=== PATIENT | male | born 1940 | race Caucasian/White ===

== ENCOUNTER 2022-09-03 09:11 | Day surgery (SDC) | payer OTHER, SELFPAY ==
[2022-08-26 08:48] VITALS: BMI 25.9
[2022-09-03] VITALS (12 sets, daily range): BP systolic 102–152; BP diastolic 63–89; PULSE 70–87; RESP 12–22; TEMP 36.3–37.2; O2SAT 93–99; BMI 25.9
--- NOTE | 2022-09-03 08:00 | DI.RAD.S_ITS ---
PROCEDURE: XR HIP W PEL IF DONE RT 2V INDICATIONS: right RAJI, anterior TECHNIQUE: Multiple intraoperative fluoroscopic views of the right hip were acquired. COMPARISON: None. FINDINGS: Bones: Intraoperative fluoroscopic views demonstrate placement of a total right hip arthroplasty IMPRESSION: Intraoperative fluoroscopic views of right hip arthroplasty. Dictated by: Cecilia Katz M.D. on 09/03/2022 at 17:09 Approved by: Cecilia Katz M.D. on 09/03/2022 at 17:10
[2022-09-03] MEDS: CELECOXIB 200 MG CAPSULE PO (10:05)
[2022-09-03] MEDS: ACETAMINOPHEN 325 MG TABLET 975 MG PO (10:05)
[2022-09-03] MEDS: VANCOMYCIN 1,000 MG/200 ML PIGGYBACK 200 MG IV (10:05)
--- NOTE | 2022-09-03 10:43 | PM.PREOP ---
Pre-operative Note COVID-19 COVID-19 status: Negative Interval Note History & Physical reviewed/Exam performed by Physician: Yes Changes to H&P: No
--- NOTE | 2022-09-03 10:45 | P.OP_ITS ---
Operative Date/Time/Diagnoses Date of procedure: 09/03/22 Time of procedure: 11:00 Pre-op diagnosis: right hip OA Post-op diagnosis: same Procedure & Clinicians Procedure: right total hip anterior approach Same procedure as scheduled: Yes Indications: The patient has had progressively worsening right hip pain with radiographic changes consistent with arthritis. Non-operative management has failed and the patient has requested total hip replacement. The risks, benefits and alternatives to surgery were discussed with the patient prior to proceeding. Risks discussed included, but were not limited to, failure to relieve pain, leg length discrepancy, dislocation, stiffness, infection, nerve damage, deep venous thrombosis, pulmonary embolism, stroke, coma, heart attack, permanent paralysis and , as well as the potential need for eventual revision of the prosthetic. Surgeon: Lawanda Trujillo Short Filler Bunch Machine Operator: Jude Aaron Click Yes if Unassisted: Yes Anesthesia Type: General and Spinal Operative Notes Findings: Severe right hip osteoarthritis, good stability, adequate bone Closure Type: primary Specimen(s): none sent Prosthetic devices, grafts, tissues, transplants, or devices: Trujillo and nephew R3 size 54, anthology a standard offset size 6, neutral poly liner, one 6.5mm screw, 36 by -3 oxinium head Applied: implant(s) Estimated Blood Loss (mL): 250 Blood products transfused: none Procedure in detail: The patient was brought to the operating room. Patient was carefully positioned in the supine position. Time-out was performed and antibiotics were given. Anesthesia was induced. He was positioned in the on the table in order to allow hyperextension of the hip. The right lower extremity was prepped and draped in a standard sterile fashion. An anterior right hip incision was made 1 fingerbreadth lateral to the anterior superior iliac spine and extended distally towards the greater trochanter. Dissection was carried out through skin and subcutaneous tissues. The skin and subcutaneous tissues were carefully injected with Lidocaine with epi. Superficial hemostasis was achieved. The fascia over the tensor fascia saran was defined and incised with a knife. Two Allis clamps were used to grasp the fascia. Tensor fascia saran was retracted laterally. A gelpi retractor was placed. Dissection was carried out down along the neck. The circumflex vessels were carefully identified and cauterized with the Aqua Mantis. There was good visualization of the femoral neck. A Cobra was placed superior to the neck and the gluteus fibers were carefully stripped from that superior aspect of the capsule. A 2nd retractor was placed along the inferior aspect of the neck. The rectus insertion along the capsule was partially released. A 3rd retractor that was then gently placed over the rim of the acetabulum under the rectus. Capsule was carefully incised and released from the intertrochanteric line circumferentially superior to the mid sagittal line and inferiorly to the mid sagittal line until the lesser trochanter was palpable. A tag stitch was placed both in the superior and inferior limb of the capsular insertion. Along the acetabulum capsule was also released up to the mid sagittal 12:00 position. A portion of the labrum was resected. A saw was used to perform an osteotomy at the level of the intertrochanteric line and the junction of the superior femoral neck leaving approximately 1 finger breath of residual inferior neck above the lesser trochanter. A 2nd cut was made along the femoral neck at the base of the head and a napkin ring of neck was removed. Corkscrew was placed in the femoral head and the head was removed without difficulty. Retractors were then repositioned around the acetabulum. Residual labrum was resected and additional osteophytes were removed. A reamer that was 4 mm below the templated size was placed by hand in the acetabulum and it was reamed to centralize the acetabulum. It was then reamed up to 2 under the templated size and fluoroscopy was brought in to confirm the position of the reaming and depth of reaming. I reamed 1 under the anticipated size. A trial cup was placed and noted that it was appropriately sized and fluoroscopy confirmed position and depth. The component was open and inserted without difficulty fluoroscopic imaging was used to confirm that the cup had been adequately seated and was well positioned. It was further stabilized with a single screw. Neutral poly liner was placed. The cup was tested and noted to be stable. Attention was then directed to the femur. The femur was gently hyperextended additional capsular release was performed as needed in order to allow adequate visualization of the proximal femur with elevation of the femur. Patient was placed in a hyperextended slightly adducted position with maximum external rotation. The patient had extremely dense bone. I worked meticulously to clear out the lateral aspect of the trochanter in order to avoid varus. Box osteotome was used to check for any residual neck as well as sclerotic bone along the trochanter. [place] pepper was placed in the femur. Additional broaching was performed. Canal finder was used to determine the alignment of the canal and position. Size 1 broach was placed. I did check the overall position of the broach with a size 1 broach in. The canal was then appropriately broached up to the templated size as long as there was adequate stability of the broach and serial advancement of the broach without excessive impingement. Specific attention was directed at avoiding varus attempting to direct the distal aspect of the broach more anteriorly and avoiding excessive anteversion. Trial reduction showed acceptable range of motion, good stability, no posterior impingement, alevism of leg length and appropriate lateral shuck. It was clearly too tight to place a extended offset neck and looked appropriate with a standard offset neck. I also hyperflexed the hip and checked that there was no impingement anteriorly and there was good stability with flexion, adduction and internal rotation. Marcaine and Exparel were injected. The stem was placed without difficulty. Repeat trial reduction and x-ray showed acceptable overall position, length, and no evidence of the femoral fracture. Final head was placed. Wound was meticulously irrigated with normal saline. The hip was reduced and additional Exparel and Marcaine were injected. The capsule was closed with interrupted nonabsorbable sutures. The fascia of the tensor was closed with interrupted and running Vicryl. No drain was placed. Any tensor fascia saran muscle that appeared to be contused or injured which was a minimal amount was carefully resected. Capsule around the tensor was injected with Exparel and Marcaine. The skin was closed with barbed stitches for the subcutaneous tissue and skin. We also used surgical glue. The wound was dressed sterilely. Brief Betadine soak was also used and was meticulously irrigated with normal saline. Patient was transferred to recovery room in satisfactory condition. Complications: none Post-operative Condition: stable Disposition: Acute Care Plan for aftercare: The patient will be maintained on a standard total hip replacement protocol with weight bearing as tolerated and anterior hip precautions. The patient will receive Aspirin and sequential compression devices for DVT prophylaxis. The patient will be discharged home when safe for the home environment.
--- NOTE | 2022-09-03 10:45 | PM.PREOP ---
Pre-operative Note COVID-19 COVID-19 status: Negative Interval Note History & Physical reviewed/Exam performed by Physician: Yes Changes to H&P: No
[2022-09-03] MEDS: CEFAZOLIN 2 GM/100 ML PREMIX 100 ML IV ×2 (11:15→18:52)
[2022-09-03] MEDS: TRANEXAMIC ACID 1,000 MG VIAL 2000 MG INJ ×2 (11:30→13:55)
[2022-09-03] MEDS: ACETAMINOPHEN IV 1,000 MG/100 ML VIAL 400 MG IV (11:52)
[2022-09-03] MEDS: BUPIVACAINE 0.25% (PF) 60 ML, EPINEPHrine 0.3 MG INJ (11:54)
[2022-09-03] MEDS: BUPIVACAINE LIPOSOME 266 MG/20 ML VIAL INJ (11:55)
--- NOTE | 2022-09-03 11:59 | SUR.OPER ---
Supine on padded [place] table with bilateral legs secured in padded positioning boots and suspended in positioning spars, operative leg in traction per surgeon. Head on one pillow. Arm on non-operative side secured on padded armboard <90 degrees abduction. Arm on operative side padded and resting across chest then secured with tape over sheet. Padded perineal post in place per surgeon.
--- NOTE | 2022-09-03 14:17 | DI.RAD.S_ITS ---
PROCEDURE: XR HIP W PEL IF DONE LT 2V INDICATIONS: RIGHT TOTAL ANTERIOR HIP TECHNIQUE: Right views of the hip were acquired. COMPARISON: [facility], CR, XR HIP W PEL IF DONE RT 2V, 09/03/2022, 12:33. FINDINGS: Bones: Total right hip prosthesis in good position. Ana procedural soft tissue air noted. No evidence of fracture. Prior left hip total arthroplasty in good position. Soft tissues: No suspicious soft tissue calcifications or masses. IMPRESSION: Recent right total hip arthroplasty in good position without complication. No fracture. Prior left total hip arthroplasty also in good position Approved by: Alexey Perdomo M.D. on 09/03/2022 at 17:31
[2022-09-03] MEDS: OXYCODONE IR 5 MG TABLET PO (15:02)
[2022-09-03] MEDS: LACTATED RINGERS 1,000 ML 84 ML IV (15:13)
--- NOTE | 2022-09-03 15:43 | SUR.PHASEI ---
Pt transferred too room 221 in bed by this RN. SBAR report to Ignacia (JAMES) Rn. Pt transferred with 1 belongings bag. Bed in low position. Call light in reach.
[2022-09-03] MEDS: LACTATED RINGERS 1,000 ML 125 ML IV (16:00)
[2022-09-03] MEDS: ACETAMINOPHEN 325 MG TABLET 650 MG PO (18:52)
[2022-09-03] MEDS: DOCUSATE 100 MG CAPSULE PO (20:31)
[2022-09-03] MEDS: ASPIRIN EC 81 MG TABLET PO (20:31)
[2022-09-04] VITALS: BP 125/60; PULSE 75; RESP 17; TEMP 36.6; O2SAT 96
[2022-09-04] MEDS: ACETAMINOPHEN 325 MG TABLET 650 MG PO ×3 (00:01→11:45)
[2022-09-04] MEDS: LACTATED RINGERS 1,000 ML 125 ML IV (00:04)
[2022-09-04] MEDS: SODIUM CHLORIDE 0.9% FLUSH 10 ML IV (02:54)
[2022-09-04] MEDS: CEFAZOLIN 2 GM/100 ML PREMIX 100 ML IV (02:55)
[2022-09-04 04:00] VITALS: BP 139/69; PULSE 77; RESP 17; TEMP 36.3; O2SAT 98
[2022-09-04 04:52] LABS: Hematocrit 34.7 % (41-53); Hemoglobin 11.7 g/dL (13.5-17.5)
--- NOTE | 2022-09-04 07:13 | P.DS_ITS ---
History of Present Illness History of Present Illness Date Patient Seen: 09/04/22 Time Patient Seen: 07:14 Chief complaint: Right total HIP Arthro/Anterior Approach *OPB* Narrative: Operative Date/Time/Diagnoses Date of procedure: 09/03/22 Time of procedure: 11:00 Pre-op diagnosis: right hip OA Post-op diagnosis: same Procedure & Clinicians Procedure: right total hip anterior approach Same procedure as scheduled: Yes Indications: The patient has had progressively worsening right hip pain with radiographic changes consistent with arthritis. Non-operative management has failed and the patient has requested total hip replacement. The risks, benefits and alternatives to surgery were discussed with the patient prior to proceeding. Risks discussed included, but were not limited to, failure to relieve pain, leg length discrepancy, dislocation, stiffness, infection, nerve damage, deep venous thrombosis, pulmonary embolism, stroke, coma, heart attack, permanent paralysis and , as well as the potential need for eventual revision of the prosthetic. Surgeon: Lawanda Trujillo Informatics Application Analyst: Jude Aaron Click Yes if Unassisted: Yes Anesthesia Type: General and Spinal Operative Notes Findings: Severe right hip osteoarthritis, good stability, adequate bone Closure Type: primary Specimen(s): none sent Prosthetic devices, grafts, tissues, transplants, or devices: Trujillo and nephew R3 size 54, anthology a standard offset size 6, neutral poly liner, one 6.5mm screw, 36 by -3 oxinium head Applied: implant(s) Estimated Blood Loss (mL): 250 Blood products transfused: none Discharge Providers Provider Discharge Date: 09/04/22 Primary care physician: Doctor Pura MD Consults: 09/02/22 08:00 Consult to Anesthesiology Routine Comment: Consulting Provider: Anesthesiologist Reason for consultation: Regional block for post operative pain control 09/03/22 16:02 Consult to Discharge Planning Routine Comment: Consult to Physical Therapy Evaluate & Treat Comment: Physician Instructions: post op RAJI protocol Consult to Respiratory Therapy Evaluate & Treat Comment: Physician Instructions: Evaluate and treat Discharge provider: Rosa Loyola PA-C Summary Hospital Course Discharge Diagnosis: Right hip OA, s/p R RAJI Hospital Course: Mr Menjivar's hospital course was unremarkable. On POD# 1 he was feeling well and wanted to go home. He was eating and voiding without difficulty. His pain was well-controlled with oral medication. He was evaluated by PT prior to discharge. Exam Vital Signs (past 8 hours): - 09/04/22 00:00 09/04/22 04:00 Temperature 97.8 F 97.3 F L Pulse Rate 75 77 Respiratory Rate 17 17 Blood Pressure 125/60 139/69 Pulse Oximetry 96 98 Oxygen Delivery Method Room Air Oxygen Flow Rate 0 Narrative Exam Narrative: 5/5 strength in hip flexors, quadriceps, hamstrings, DF, PF, EHL on right; foot drop on left. Sensation to light touch intact in BLE. Calves soft, compressible, nontender and without palpable cords or masses. Aquacel dressing CDI. Objective Labs Result Diagrams: 09/04/22 04:20 Labs: Laboratory Results - last 24 hr 09/04/22 04:20 Hgb 11.7 L Hct 34.7 L PFSH Medical History (Updated 08/26/22 @ 09:09 by Carol Menjivar RN) Fungal infection (2021) Left foot drop Osteoarthritis Surgical History (Updated 09/04/22 @ 07:20 by Rosa Loyola PA-C) History of back surgery History of total left hip replacement (~2018) History of total left knee replacement (TKR) (2003) Hx of bilateral cataract extraction Hx of hernia repair Social History household members: spouse Smoking Status: Former smoker alcohol intake: current Discharge Assessment & Plan Assessment and Plan Assessment: s/p Right total hip arthroplasty, anterior approach Plan of Treatment: D/c home, multimodal pain control, ASA 81 mg BID x 6 weeks for VTE prophylaxis, outpt PT Discharge Plan Discharge Plan Patient Disposition: Home Discharge orders & Medications Discharge Orders: Discharge (Order); Ordered 09/04/22 Ordered By: Rosa Loyola Prescriptions: New oxycodone 5 mg Tablet 5 mg PO Q4H PRN (Reason: Pain, Moderate (4-6)) Qty: 60 0RF acetaminophen 325 mg Tablet 650 mg PO Q6HR MDD 3000 mg Qty: 240 0RF aspirin 81 mg Tablet,Delayed Release (Dr/Ec) 81 mg PO BID Qty: 90 0RF docusate sodium 100 mg Capsule 100 mg PO BID PRN (Reason: constipation) Qty: 60 2RF Continued ibuprofen 200 mg Tablet 200 mg PO Q6H PRN (Reason: Pain) Label Comments: has not taken for a couple of months Follow up/Referrals: Miscellaneous,DoctorMD [Primary Care Provider] - Lawanda Trujillo MD [Physician] - As previously scheduled (Follow up with Sapphire Phillip PA-C, on 09/15/2022 @ 2:00 pm at [facility] office in [place]) Diet/Activity/Treatments Diet: Diet as Tolerated Activity: Walk frequently! Cold/Heat Therapy: Ice to hip as needed for pain. Skin/Wound/Dressing Care Report to your healthcare provider any signs of infection, such as:: chills, fever, night sweats, unusual drainage and unusual redness Dressing: May shower. Leave Aquacel dressing in place until follow up appointment. No bathing or otherwise soaking incision. Visit Report/Discharge Packet Instructions: DI for Hip Replacement Stand Alone Forms: Surgery Discharge Discharge Data Primary Care Provider: Miscellaneous,Doctor Attending Provider: Lawanda Trujillo
[2022-09-04 08:49] VITALS: BP 104/47; PULSE 86; RESP 18; TEMP 36.8; O2SAT 95
[2022-09-04] MEDS: DOCUSATE 100 MG CAPSULE PO (08:53)
[2022-09-04] MEDS: ASPIRIN EC 81 MG TABLET PO (08:53)
--- NOTE | 2022-09-04 09:26 | CM.DANOTE ---
DDP: Case received, EMR reviewed and met with patient. Spouse, Vilma, was also at bedside. Was able to obtain information regarding patient's baseline activity status prior to his surgery. DCP assessment completed with information currently available. Patient is an 82 year old male who admitted yesterday morning to the care of the orthopedic team. PCP: Dr. Beaulieu at [facility]. Payer: confirmed: [facility]. Patient came to the hospital via private vehicle for a surgical procedure. Patient had right total hip anterior surgery. Patient has history of osteoarthritis. Met with patient and spouse, Vilma, in the room. He was sitting up in his chair, pleasant, alert and oriented. He and his spouse reside in [facility]. He has had surgeries before, his other hip about 3 years ago. He indicated that he does not use any DME currently, drives.. Confirmed that he gets his medical care at the [facility]. P: Patient has discharge orders for home today, pending working with PHanna Levine RN/Maintainer Central Office Discharge Planning/Care Management CM Discharge Assessment Start: 09/04/22 09:25 Freq: Status: Active Protocol: Document 09/04/22 09:25 (Rec: 09/04/22 09:26 [id number]) Discharge Planning Assessment Assigned Machinery Repair Maintenance Supervisor Eleni Levine RN/Maintainer Central Office Advance Directives? No History Provided By Patient,Medical Record Prior Living Arrangements House Household Members spouse Type of transporation used prior to Drives own vehicle admit Independent with ADL's Yes Is patient alert and oriented? Yes Caregiver for Another No Barriers to Discharge No Discharge Plan Home Transportation Arrangement Spouse Referrals Initiated None needed Whiteboard Updated in Patient Room with Yes name and ext. # of Machinery Repair Maintenance Supervisor Review Status In Process Next Review Type Continued Stay Review Pre-Anesthesia Assessment Start: 08/26/22 08:48 Freq: Status: Active Protocol: Document 08/26/22 08:48 CAB (Rec: 08/26/22 09:33 CAB [id number]) Pre-Anesthesia Assessment Preferred Name Grabiel Patient Information Reviewed Via Phone Assessment Assessment Completed With Patient Diagnostic Results BMP/CMP,CBC Comment Outside labs scanned, ECG done , not here COVID screen-needs to schedule Primary Care Provider hepzlap Seen Specialist in Last 12 Months Yes Specialist Seen Orthopedist,Director Erp Primary Language [place] Citizen Charter Representative Required No Height 5 ft 10 in Weight 181 lb Body Mass Index (BMI) 25.9 Hearing Ability Normal Visual Assist Glasses Dentition Type Partial- Upper & Lower Barriers to Learning None Hx Anesthesia Reactions No Hx Family Anesthesia Reaction No Hx Malignant Hyperthermia No Hx Blood Transfusions No Anesthesia Review Requested No alcohol intake current alcohol intake frequency 0-2 drinks per day Smoking Status Former smoker how long ago did patient quit smoking Quit age 26 Substance Use Type does not use Pain Present Pain Reported Musculoskeletal Symptoms Abnormal Gait,Difficulty Walking,Joint Pain History of Falling (Recent or History of No ) Patient is completely paralyzed or No completely immobile Mental Status Oriented to own ability Is patient on oxygen? No Does patient have MEDEL/SOB No Hx Sleep Apnea No Currently Taking a Beta Kushal No Can You Climb a Flight of Stairs Without Yes SOB Hx Chest Pain No Hx SOB No Hx Syncope or Dizziness No Anti-Coagulant Therapy No Has a Heating Technician No Cardiac Testing No Hx Pacemaker/ICD No Pacemaker Rep Required? No Cardiac Clearance Received Not Applicable Diet Type At Home Regular dysphagia No Urinary Catheter Present No Hx Urinary Self Catheterization No Diabetes No Hx Drug Resistant Organism No Presence of External or Internal Medical Yes: Left hip/knee, bilat eye Devices IOLs Have you had any close contact with No someone diagnosed with COVID-19? Received a COVID vaccine? Yes Received all doses? Yes Marital Status Lives With spouse Prior Living Arrangements House Number of Floors (Floors) One Floor Support System Spouse Does the Patient Have Assistance After Yes Surgery Patient Discharge Plan Description Return Home Comment Pt advised overnight length of stay per surgeon Feels Safe in Current Environment Yes Been Physically Hurt or Threatened By a No Person in Current Environment Do you have thoughts of harming yourself None or others? Are you currently considering suicide? No Do you have a plan to hurt yourself or No Plan others? Do You Have Any Spiritual Beliefs That No May Affect Your HC Choices? Do You Have Any Cultural Practices That No May Affect Your HC Choices? Who Can We Speak to About Patient's Care Family, friends Identifying Code for Release of Patient Declines to issue Information Health Care Proxy/Next of Kin Vilma () Health Care Proxy Emergency Contact Name Vilma () Emergency Contact Advance Directives? No Power of Customer Business Manager No PAC Instructions Durable medical equipment, Medications to take/avoid, Nasal antibiotic,No ETOH/ petroleum product on skin DOS, NPO,Post-op transportation,Pre -surgical wash,Sensory aids, Sturdy shoes/comfortable clothes,Do not bring valuables and remove jewelry
--- NOTE | 2022-09-04 09:45 | PT.IIE ---
Current Diagnoses Unilateral primary osteoarthritis, right hip (09/03/22) Presence of unspecified artificial hip joint (09/03/22) Surgery Performed Operation Date: 09/03/22 11:15 Actual Procedures p Total Hip Arthroplasty/Anterior Approach(Right) - Lawanda Trujillo MD Surgical History (Last Updated 08/26/22 @ 09:09 by Carol Menjivar, RN) History of back surgery History of total left hip replacement (~2018) History of total left knee replacement (TKR) (2003) Hx of bilateral cataract extraction Hx of hernia repair Medical History (Last Updated 08/26/22 @ 09:09 by Carol Menjivar RN) Fungal infection (2021) Left foot drop Osteoarthritis Physical Therapy Inpatient Evaluation/Re-Eval M1 PT/OT-IP Prior Functional Status Start: 09/04/22 12:18 Freq: NEEDED Status: Active Protocol: Document 09/04/22 09:45 AB (Rec: 09/04/22 12:32 AB [id number]) Medical Review Prior Functional Status Medical History Reviewed Yes Communication able to make needs known Mobility and Gait pt stated that he is independent with all mobilities and ambulation without AD Social History Household Members spouse Living Arrangements House Number of Floors (Floors) One Floor Number of Stairs To Enter/Railing? 2 steps to enter without rails (cabrera on B sides) Home Environment High Toilet,Walk in Shower,Tub /Shower Doors,Built-In Shower Seat Home Equipment Straight Cane Additional Social History Comment spouse stated that they are going to borrow her friend's walker pt has an adjustable bed M2 PT-IP Current Condition Start: 09/04/22 12:18 Freq: NEEDED Status: Active Protocol: Document 09/04/22 09:45 AB (Rec: 09/04/22 12:32 AB [email or web address]) Physical Therapy Current Condition Current Condition Evaluation Date 09/04/22 Treatment Diagnosis s/p R RAJI anterior approach; difficulty in walking Onset Date 09/03/22 M3 PT-IP Subjective Start: 09/04/22 12:18 Freq: NEEDED Status: Active Protocol: Document 09/04/22 09:45 AB (Rec: 09/04/22 12:32 AB [email or web address]) Subjective Physical Therapy Visit Type Type Initial Evaluation Visit Start Time 09:45 Visit Stop Time 10:46 Total Visit Minutes 61 Number of ASSOCIATE ACCOUNT EXECUTIVE Visits 0 Physical Therapy Visit Comments Patient Comments agreeable to do PT Therapy Pain Assessment Pain When Pain Assessed At Rest Pain Present Pain Present Pain Reported Location Right Hip Intensity 2 Scale Used Numeric (0 - 10) Pain Management Techniques Distraction,Modification of Treatment,Re-positioning, Timing of Activity with Medications M4 PT-IP Mobility and Gait Start: 09/04/22 12:18 Freq: NEEDED Status: Active Protocol: Document 09/04/22 09:45 AB (Rec: 09/04/22 12:32 AB [id number]) PT-Bed Mobility Assessment Supine to Sit Supine to Sit Standby Assistance Sit to Supine Sit to Supine Standby Assistance PT-Transfer Assessment Sit to and From Stand Sit to and from Stand Minimal Assistance,1 Person Assistance,Use of Upper Extremities Equipment Transfer Assistive Device Gait Belt,Front Wheeled Walker Orthotic/Prosthetic Devices or Brace: No Transfers Transfer Destination Bed,Chair Transfer Technique ambulated Transfer Ability Level of Assist Contact Guard Assistance, Minimal Assistance,Moderate Assistance,1 Person Assistance ,Use of Upper Extremities Comments Mobility Comments pt sitting on chair. spouse in room. educated pt and spouse regarding pt's anterior hip precautions. pt needing cues to recall. pt completed sit to stand from the chair mod A and max cues. instructed pt to sit back down on chair. educated pt on sit <>stand techniques and pt completed x 2 reps and completed with CGA to min A and cues. pt ambulated to the bed using FWW min A and cues for quads activation. presents with antalgic gait with slight r knee buckling at late phase stance. pt appears to have a leg length discrepancy with RLE longer than L. pt completed sit <> supine SBA. caregiver training conducted. educated spouse on how to use safety belt and how to assist pt. spouse was able to put safety belt on pt and assisted pt with ambulation in room ~ 20 ft using FWW CGA to min A. spouse able to cue pt. educated pt and spouse with stair climbing. pt completed up/down platform step using SPC+wall with PT assisting CGA to min A and repeated again with spouse assisting. spouse was able to assist pt safely and cued pt appropriately. pt ambulated back to room ~ 30 ft using FWW SBA. pt sat on chair. positioned. call light and table placed within reach. educated on car transfers. informed nurse regarding pt's mobility d/c plan. Gait Assessment Gait Gait Assistance Required: Standby Assistance,Contact Guard Assist,Minimum Assistance Distance (Feet) 30 Able to Maintain Weight Bearing Status Yes During Gait Assistive Devices Assistive Device Gait Belt,Front Wheeled Walker Orthotic/Prosthetic Devices or Brace: No Gait Deviations General Gait Pattern Decreased Stride Length, Decreased Feet Clearance Factors Limiting Gait Function Factors Limiting Gait Function Decreased Activity Tolerance, Decreased Strength,Difficulty Following Directions,Limited Range of Motion,Pain,Poor Balance,Poor Safety Awareness Stair Climbing Assessment Evaluation Level of Assist On Stairs Contact Guard Assistance, Minimal Assistance Devices Stair Climbing Assistive Devices Straight Cane Technique/Endurance Stair Climbing Direction Ascend and Descend Stair Climbing Technique Step to Step Number of Steps Climbed 1 Query Text: Stair Climbing Set # Repetitions (reps) 2 PT-Balance Assessment Sitting Balance and Reactions Static Sitting Balance Ability Normal Dynamic Sitting Balance Ability Good Standing Balance and Reactions Static Standing Balance Ability Fair Dynamic Standing Balance Ability Fair Device Used FWW M5 PT-IP Objective Assessments Start: 09/04/22 12:18 Freq: NEEDED Status: Active Protocol: Document 09/04/22 09:45 AB (Rec: 09/04/22 12:32 [facility] Orientation Orientation/Cognition Level of Alertness Alert Orientation Name,Place,Situation Language Function Ability No Deficits Noted Safety Awareness Decreased Safety Awareness Memory Description Short Term Impaired Gross Range of Motion Lower Extremity ROM Assessment Within Functional Limits Strength Lower Extremity Strength Assessment Right Impaired Hip 3+/5 Knee 4-/5 Sensation Assessment Sensation Gross Sensation WNL Muscle Tone Muscle Tone WNL Yes M6 PT-IP Treatment Start: 09/04/22 12:18 Freq: NEEDED Status: Active Protocol: Document 09/04/22 09:45 AB (Rec: 09/04/22 12:32 [facility] Physical Therapy Treatment Education Education Provided Precautions,Weight Bearing Status,Post-Op Packet,Safety M7 PT-IP Assessment and Plan Start: 09/04/22 12:18 Freq: NEEDED Status: Active Protocol: Document 09/04/22 09:45 AB (Rec: 09/04/22 12:32 [facility] PT Summary Assessment and Plan Potential Rehabilitation Potential Good Status of Condition at Evaluation Stable Summary Impairments Pain,ROM,Strength,Balance, Coordination,Sensation,Tone, Cognition,Bed Mobility, Transfers,Gait,Activity Tolerance Assessment Summary pt initially requiring CGA to min A with ambulation using FWW but progressed at end of PT session to SBA. caregiver training conducted and spouse was able to assist pt safely. pt plans to go home and spouse to assist. pt may go home when medically stable. Goals Bed Mobility Goal Independent Transfer Goal Independent,Front Wheeled Walker Gait Goal Independent,Front Wheel Walker Gait Distance 300 Other Goals up/down 2 steps using SPC + wall SBA Days to Meet Goals 5 Frequency of Treatment Frequency Of Treatment Twice a Day Treatment Plan Physical Therapy Treatment Plan Bed Mobility Training,Transfer Training,Gait Training, Therapeutic Exercise,Balance Retraining,Post Op Education, Discharge Planning,Hot or Cold Pack,Neuromuscular Re-ed, Coordination Retraining,Manual Therapy Precautions Anterior Hip Precautions No Hip Extension,No Hip External Rotation Weight Bearing Status Weight Bearing Status Weight Bear as Tolerated Allowed Weight Bearing Amount (enter % RLE WBAT or #) (%) Recommendations To Nursing Amount of Assist Needed 1 Person Assist Discharge Recommendations PT Discharge Recommendations Home with Assistance, Outpatient PT Transportation Needs at Discharge Private Vehicle
== END 2022-09-04 12:45 | disposition home or self-care (01) ==
LOC: OR 09:15 → AC 09:16
PROVIDERS: Referring Provider Orthopaedic Surgery; Visit Provider Orthopaedic Surgery
PROC: (CPT 27130; principal; 2022-09-03 11:15)
DX: M16.11 Unilateral primary osteoarthritis, right hip (principal)
CPT/HCPCS: 27130; 01214; 36415; 73502; 76000; 85014; 85018; 97161; 97530; C1776; C9290; J0131; J0171; J0690; J1100; J1170; J2405; J2704